=== PATIENT | male | born 1960 | race Two or more races ===

== ENCOUNTER 2020-04-04 12:30 | Inpatient (IN) | payer OTHER ==
[~2020-04-04] VITALS: Ht 152.4 cm; Wt 99.8 kg
[~2020-04-04 12:30] MED LIST: AZITHROMYCIN OP; DAILY VALUE1 EACH; DAILY VALUE1 EACH PO; FOLIC ACID1 MG PO; LEVAQUIN500 MG; LEVAQUIN500 MG PO; PREVACID30 MG; PROTECT PLUS A1 EACH PO; TESSALON PERLE100 M1 PO; TUSSI PRES-B L480 ML PO; TYLENOL325 MG PO
--- NOTE | 2020-04-04 12:47 | NUR ---
PACIENTE ALERTA, SE OBSERVA CON CONFUSION AL HABLAR. EL CUAL REFIERE DIFICULTAD RESPIRATORIA, AL MOMENTO DE REALIZAR NO PRESENTABA, DESEAN AL COLTON SIGNOS VITALES, PACIENTE SATURANDO 90%, NO PRESENTA FIEBRE, PACIENTE REFIERE TENER COVID POSITIVO, SE TRASLADA PACIENTE CON MEDIDAS PROTECTIVAS ADECUADAS AL AREA DE COVID.
--- NOTE | 2020-04-04 13:08 | NUR ---
PACIENTE MASCULINO ALERTA ORIENTADO DEVIDAMENTE IDENTIFICADO. SE RE ORIENTA SOBRE EL TRATAMIENTO ORDENADO POR EL MEDICO EL MISMO REFIERE ENTENDER. BAJO MEDIDAS ASEPTICAS SE CANALIZA, SE ELISA MUESTRAS DE LABORATORIO Y SE ADMINISTRAN MEDICAMENTOS OPHELIA ORDENADOS. SE LE CAROLINE PRIVACIDAD Y SEGURIDAD EN TODO MOMENTO. ORDENEES TOMADAS POR RN: ANUEL Y EJECUTADAS POR RN: Smitha ALFARO.
== END 2020-04-23 22:54 | disposition home or self-care (01) | DRG 177 ==
LOC: ER 12:30 → MEDJ 17:57
PROVIDERS: ADMIT Specialist; ATTEND Specialist
PROC: 8E0ZXY6 Isolation (ICD-10-PCS; principal; 2020-04-04)
PROC: 3E0F7SF Introduction of Other Gas into Respiratory Tract, Via Natural or Artificial Opening (ICD-10-PCS; 2020-04-04)
PROC: 4A033R1 Measurement of Arterial Saturation, Peripheral, Percutaneous Approach (ICD-10-PCS; 2020-04-04)
PROC: 4A12X4Z Monitoring of Cardiac Electrical Activity, External Approach (ICD-10-PCS; 2020-04-04)
PROC: 02HV33Z Insertion of Infusion Device into Superior Vena Cava, Percutaneous Approach (ICD-10-PCS; 2020-04-18)
PROC: BT43ZZZ Ultrasonography of Bilateral Kidneys (ICD-10-PCS; 2020-04-21)
PROC: BW28ZZZ Computerized Tomography (CT Scan) of Head (ICD-10-PCS; 2020-04-22)
DX: U07.1 COVID-19 (principal); J12.89 Other viral pneumonia; D68.8 Other specified coagulation defects; F10.231 Alcohol dependence with withdrawal delirium; N17.8 Other acute kidney failure; B37.49 Other urogenital candidiasis; R09.02 Hypoxemia; F10.20 Alcohol dependence, uncomplicated; K70.9 Alcoholic liver disease, unspecified; E09.9 Drug or chemical induced diabetes mellitus without complications; T38.0X5A Adverse effect of glucocorticoids and synthetic analogues, initial encounter; E87.6 Hypokalemia

== ENCOUNTER 2020-04-24 16:59 | Emergency (ER) | payer OTHER ==
[~2020-04-24] VITALS: Ht 162.6 cm; Wt 90.7 kg
== END 2020-04-25 22:20 | disposition home or self-care (01) ==
LOC: ER 16:59
DX: N30.81 Other cystitis with hematuria (principal); B37.41 Candidal cystitis and urethritis; R33.8 Other retention of urine; R53.81 Other malaise

== ENCOUNTER 2020-08-19 08:00 | Outpatient (CLI) | payer OTHER | END 2020-08-19 08:06 | disposition home or self-care (01) | LOC: LAB 08:00 | PROVIDERS: ATTEND Specialist | DX: U07.1 COVID-19 (principal); E03.8 Other specified hypothyroidism; E78.2 Mixed hyperlipidemia; D51.0 Vitamin B12 deficiency anemia due to intrinsic factor deficiency; J45.998 Other asthma ==

== ENCOUNTER → 2020-11-06 08:04 | Outpatient (CLI) | payer OTHER | END | disposition home or self-care (01) | LOC: LAB 08:04 | PROVIDERS: ATTEND Specialist | DX: E78.2 Mixed hyperlipidemia (principal); N40.1 Benign prostatic hyperplasia with lower urinary tract symptoms; Z12.11 Encounter for screening for malignant neoplasm of colon; E11.65 Type 2 diabetes mellitus with hyperglycemia; D68.8 Other specified coagulation defects; K72.90 Hepatic failure, unspecified without coma; K72.00 Acute and subacute hepatic failure without coma; D64.89 Other specified anemias ==

== ENCOUNTER 2020-11-07 11:13 | Outpatient (CLI) | payer OTHER | END 2020-11-07 11:17 | disposition home or self-care (01) | LOC: LAB 11:13 | PROVIDERS: ATTEND Specialist | DX: D64.89 Other specified anemias (principal); N40.1 Benign prostatic hyperplasia with lower urinary tract symptoms; E11.65 Type 2 diabetes mellitus with hyperglycemia; E11.69 Type 2 diabetes mellitus with other specified complication; D68.8 Other specified coagulation defects; K72.00 Acute and subacute hepatic failure without coma; K72.90 Hepatic failure, unspecified without coma; Z12.11 Encounter for screening for malignant neoplasm of colon; E78.2 Mixed hyperlipidemia ==

== ENCOUNTER → 2021-02-04 08:10 | Outpatient (CLI) | payer OTHER | END | disposition home or self-care (01) | LOC: LAB 08:10 | PROVIDERS: ATTEND Specialist | DX: C22.0 Liver cell carcinoma (principal); K75.81 Nonalcoholic steatohepatitis (NASH) ==

== ENCOUNTER 2021-02-27 08:44 | Outpatient (CLI) | payer OTHER | END 2021-02-27 08:49 | disposition home or self-care (01) | LOC: SONOGRAMA 08:44 | DX: N28.89 Other specified disorders of kidney and ureter (principal); R10.84 Generalized abdominal pain ==

== ENCOUNTER 2021-03-13 08:00 | Outpatient (CLI) | payer OTHER | END 2021-03-13 08:30 | disposition home or self-care (01) | LOC: PPH VACUNA 08:00 | DX: Z23 Encounter for immunization (principal) ==

== ENCOUNTER 2021-04-03 08:20 | Outpatient (CLI) | payer OTHER | END 2021-04-03 09:00 | disposition home or self-care (01) | LOC: PPH VACUNA 08:20 | PROVIDERS: ATTEND Emergency Medicine Pediatric Emergency Medicine | DX: Z23 Encounter for immunization (principal) ==

== ENCOUNTER 2021-06-05 08:16 | Outpatient (CLI) | payer OTHER | END 2021-06-05 08:17 | disposition home or self-care (01) | LOC: LAB 08:16 | PROVIDERS: ATTEND Specialist | DX: D68.8 Other specified coagulation defects (principal); C22.0 Liver cell carcinoma; K75.89 Other specified inflammatory liver diseases; E78.2 Mixed hyperlipidemia; D64.89 Other specified anemias ==

== ENCOUNTER 2021-09-04 08:31 | Outpatient (CLI) | payer OTHER | END 2021-09-04 09:49 | disposition home or self-care (01) | LOC: LAB 08:31 | PROVIDERS: ATTEND Specialist | DX: E03.9 Hypothyroidism, unspecified (principal); E11.21 Type 2 diabetes mellitus with diabetic nephropathy; N39.9 Disorder of urinary system, unspecified; D40.0 Neoplasm of uncertain behavior of prostate; E78.2 Mixed hyperlipidemia; E11.65 Type 2 diabetes mellitus with hyperglycemia; Z12.11 Encounter for screening for malignant neoplasm of colon; D64.9 Anemia, unspecified; J45.998 Other asthma; K75.81 Nonalcoholic steatohepatitis (NASH) ==

== ENCOUNTER 2021-09-04 09:36 | Outpatient (CLI) | payer OTHER | END 2021-09-04 09:42 | disposition home or self-care (01) | LOC: RAD 09:36 | PROVIDERS: ATTEND Specialist | DX: J45.998 Other asthma (principal) ==

== ENCOUNTER → 2021-09-05 08:10 | Outpatient (CLI) | payer OTHER | END | disposition home or self-care (01) | LOC: LAB 08:10 | PROVIDERS: ATTEND Specialist | DX: E03.9 Hypothyroidism, unspecified (principal); E11.21 Type 2 diabetes mellitus with diabetic nephropathy; N39.9 Disorder of urinary system, unspecified; N40.1 Benign prostatic hyperplasia with lower urinary tract symptoms; D40.0 Neoplasm of uncertain behavior of prostate; E78.2 Mixed hyperlipidemia; E11.65 Type 2 diabetes mellitus with hyperglycemia; Z12.11 Encounter for screening for malignant neoplasm of colon; D64.9 Anemia, unspecified; J45.998 Other asthma; K75.81 Nonalcoholic steatohepatitis (NASH) ==

== ENCOUNTER 2021-09-10 08:00 | Outpatient (CLI) | payer OTHER | END 2021-09-10 08:30 | disposition home or self-care (01) | LOC: PPH VACUNA 08:00 | PROVIDERS: ATTEND Emergency Medicine Pediatric Emergency Medicine | DX: Z23 Encounter for immunization (principal) ==

== ENCOUNTER 2021-11-21 07:59 | Outpatient (CLI) | payer OTHER | END 2021-11-21 08:04 | disposition home or self-care (01) | LOC: LAB 07:59 | PROVIDERS: ATTEND Specialist | DX: E78.2 Mixed hyperlipidemia (principal); D64.9 Anemia, unspecified; D68.8 Other specified coagulation defects ==

== ENCOUNTER 2022-02-13 07:16 | Outpatient (CLI) | payer OTHER | END 2022-02-13 07:20 | disposition home or self-care (01) | LOC: LAB 07:16 | PROVIDERS: ATTEND Specialist | DX: N39.9 Disorder of urinary system, unspecified (principal); E11.69 Type 2 diabetes mellitus with other specified complication; E03.8 Other specified hypothyroidism; Z13.220 Encounter for screening for lipoid disorders; D64.89 Other specified anemias; R19.5 Other fecal abnormalities; E11.21 Type 2 diabetes mellitus with diabetic nephropathy; Z12.5 Encounter for screening for malignant neoplasm of prostate ==

== ENCOUNTER 2022-03-02 09:51 | Outpatient (CLI) | payer OTHER | END 2022-03-02 10:01 | disposition home or self-care (01) | LOC: LAB 09:51 | PROVIDERS: ATTEND Specialist | DX: N39.9 Disorder of urinary system, unspecified (principal); E11.69 Type 2 diabetes mellitus with other specified complication; E03.8 Other specified hypothyroidism; D64.89 Other specified anemias; R19.5 Other fecal abnormalities; E11.21 Type 2 diabetes mellitus with diabetic nephropathy; Z13.220 Encounter for screening for lipoid disorders; Z12.5 Encounter for screening for malignant neoplasm of prostate ==

== ENCOUNTER 2022-06-03 07:47 | Outpatient (CLI) | payer OTHER | END 2022-06-03 07:49 | disposition home or self-care (01) | LOC: LAB 07:47 | PROVIDERS: ATTEND Specialist | DX: E11.21 Type 2 diabetes mellitus with diabetic nephropathy (principal); N39.0 Urinary tract infection, site not specified; D64.9 Anemia, unspecified ==

== ENCOUNTER 2022-06-23 11:40 | Outpatient (CLI) | payer OTHER | END 2022-06-23 11:45 | disposition home or self-care (01) | LOC: MAMO-SONO 11:40 | PROVIDERS: ATTEND Specialist | DX: Z12.39 Encounter for other screening for malignant neoplasm of breast (principal); N63.0 Unspecified lump in unspecified breast; N62 Hypertrophy of breast ==

== ENCOUNTER 2022-06-25 09:29 | Outpatient (CLI) | payer OTHER | END 2022-06-25 09:37 | disposition home or self-care (01) | LOC: RAD 09:29 | PROVIDERS: ATTEND Specialist | DX: J45.998 Other asthma (principal) ==

== ENCOUNTER → 2022-08-31 08:32 | Outpatient (CLI) | payer OTHER | END | disposition home or self-care (01) | LOC: LAB 08:32 | PROVIDERS: ATTEND Specialist | DX: E11.69 Type 2 diabetes mellitus with other specified complication (principal); R19.5 Other fecal abnormalities; E11.21 Type 2 diabetes mellitus with diabetic nephropathy; M00.89 Polyarthritis due to other bacteria; N39.8 Other specified disorders of urinary system; E03.8 Other specified hypothyroidism; Z13.220 Encounter for screening for lipoid disorders; D64.89 Other specified anemias; Z12.5 Encounter for screening for malignant neoplasm of prostate ==

== ENCOUNTER → 2022-12-21 | Outpatient (CLI) | payer OTHER | END | disposition home or self-care (01) | LOC: LAB 07:06 | PROVIDERS: ATTEND Specialist | DX: E03.9 Hypothyroidism, unspecified (principal); D64.9 Anemia, unspecified; D68.8 Other specified coagulation defects; K75.81 Nonalcoholic steatohepatitis (NASH) ==

== ENCOUNTER 2023-03-23 07:41 | Outpatient (CLI) | payer OTHER | END 2023-03-23 07:55 | disposition home or self-care (01) | LOC: LAB 07:41 | PROVIDERS: ATTEND Specialist | DX: E03.8 Other specified hypothyroidism (principal); E11.21 Type 2 diabetes mellitus with diabetic nephropathy; Z12.5 Encounter for screening for malignant neoplasm of prostate; E11.69 Type 2 diabetes mellitus with other specified complication; N39.9 Disorder of urinary system, unspecified; R19.5 Other fecal abnormalities; Z13.220 Encounter for screening for lipoid disorders; D64.89 Other specified anemias ==

== ENCOUNTER 2023-07-05 07:48 | Outpatient (CLI) | payer OTHER ==
[2023-07-05 09:19] LABS: HEMATOCRIT 39.4 % (39.0-48.0); HEMOGLOBIN 13.4 g/dL (13-16.00); MEAN CELL VOLUME 91.5 fL (80.0-100.00); MEAN CORPUSCULAR HEMOGLOBIN 31.1 pg (27.00-32.0); MEAN CORPUSCULAR HGB CONC 33.9 g/dl (32.0-36.0); PLATELET COUNT 174 K/uL (150-450)
[2023-07-05 09:36] LABS: URINE APPEARANCE Clear; URINE BILIRRUBIN Negative (NEGATIVE); URINE BLOOD Negative; URINE COLOR Yellow; URINE GLUCOSE Negative (NEGATIVE); URINE LEUKOCYTE Negative; URINE NITRATE Negative; URINE PROTEIN Negative (NEGATIVE); URINE UROBILINOGEN 0.2 E.U./dl
[2023-07-05 09:41] LABS: URINE EPITHELIAL CELLS 3.5 uL (0.0-38.8)
[2023-07-05 09:52] LABS: URINE BACTERIA 3.7 uL (0.0-1933); URINE WBC 1.2 uL (0.0-23.2)
[2023-07-05 09:54] LABS: ALBUMIN 3.1 gm/dL (3.4-5.0); BILIRUBIN TOTAL 0.6 mg/dL (0.3-1.2); CALCIUM 8.1 mg/dL (8.5-10.1); CREATININE SERUM 0.5 mg/dL (0.70-1.30); FREE TRIODOTIRONINE 2.87 pg/ml (2.18-3.98); GFR 166.88; GLOBULINA 3.9 G/DL (2.4-3.5); POTASSIUM 3.58 mEq/L (3.5-5.1); T4 FREE 1.18 NG/ML (0.76-1.46); TSH 1.26 uIU/mL (0.358-3.74)
== END 2023-07-05 23:00 | disposition home or self-care (01) ==
LOC: LAB 07:48
PROVIDERS: ATTEND Specialist
DX: E11.69 Type 2 diabetes mellitus with other specified complication (principal); D64.89 Other specified anemias; E11.21 Type 2 diabetes mellitus with diabetic nephropathy; N39.9 Disorder of urinary system, unspecified; E03.8 Other specified hypothyroidism

== ENCOUNTER 2024-03-30 07:19 | Outpatient (CLI) | payer OTHER ==
[2024-03-30 08:26] LABS: HEMATOCRIT 37.1 % (39.0-48.0); HEMOGLOBIN 12.6 g/dL (13-16.00); MEAN CELL VOLUME 92.5 fL (80.0-100.00); MEAN CORPUSCULAR HEMOGLOBIN 31.4 pg (27.00-32.0); PLATELET COUNT 156 K/uL (150-450); RED BLOOD COUNT 4.01 M/uL (4.00-6.00); RED CELL DISTRIBUTION WIDTH 12.7 % (11.5-14.5)
[2024-03-30 08:40] LABS: URINE EPITHELIAL CELLS 2.4 uL (0.0-38.8); URINE RBC 7.1 uL (0.0-20.8); URINE WBC 1.8 uL (0.0-23.2)
[2024-03-30 08:51] LABS: PH,URINE 7.5; URINE BILIRRUBIN NEGATIVE (NEGATIVE); URINE BLOOD NEGATIVE; URINE GLUCOSE NEGATIVE (NEGATIVE); URINE KETONE NEGATIVE (NEGATIVE); URINE LEUKOCYTE NEGATIVE; URINE NITRATE NEGATIVE; URINE PROTEIN NEGATIVE (NEGATIVE); URINE UROBILINOGEN 0.2 E.U./dl
[2024-03-30 08:53] LABS: URINE APPEARANCE CLEAR; URINE COLOR YELLOW
[2024-03-30 09:04] LABS: URINE CAST 0.15 uL (0.0-1.40)
[2024-03-30 09:22] LABS: ALBUMIN 3.1 gm/dL (3.4-5.0); BILIRUBIN TOTAL 0.76 mg/dL (0.3-1.2); CALCIUM 8.8 mg/dL (8.5-10.1); CREATININE SERUM 0.72 mg/dL (0.70-1.30); GFR 109.56; GLOBULINA 3.9 G/DL (2.4-3.5); PROSTATIC SPECIFIC ANTIGEN 0.482 NG/ML (0.010-4.00)
== END 2024-03-30 07:26 | disposition home or self-care (01) ==
LOC: LAB 07:19
PROVIDERS: ATTEND Specialist
DX: N40.1 Benign prostatic hyperplasia with lower urinary tract symptoms (principal); E11.21 Type 2 diabetes mellitus with diabetic nephropathy; E11.69 Type 2 diabetes mellitus with other specified complication; N39.9 Disorder of urinary system, unspecified; D64.89 Other specified anemias

== ENCOUNTER → 2024-07-04 08:03 | Outpatient (CLI) | payer OTHER ==
[2024-07-04 09:08] LABS: INR 1.2; PARTIAL THROMBOPLASTIN TIME 27.7 SECONDS (22.0-34.0); PROTHROMBIN TIME 12.9 SECONDS (9.0-11.5)
[2024-07-04 09:52] LABS: ALBUMIN 3.4 gm/dL (3.4-5.0); BILIRUBIN TOTAL 0.88 mg/dL (0.3-1.2); BILIRUBIN,CONJUGATED 0.43 mg/dL (0.0-0.2); BILIRUBIN,UNCONJUGATED 0.45 mg/dL (0.0-0.6); CHOL HDL RATIO 1.7 (0-5.0); PROSTATIC SPECIFIC ANTIGEN 0.698 NG/ML (0.010-4.00); TOTAL PROTEIN 7.5 gm/dL (6.4-8.2); TSH 1.64 uIU/mL (0.358-3.74)
== END | disposition home or self-care (01) ==
LOC: LAB 08:03
PROVIDERS: ATTEND Specialist
DX: K76.1 Chronic passive congestion of liver (principal); E03.9 Hypothyroidism, unspecified; D40.0 Neoplasm of uncertain behavior of prostate; E78.2 Mixed hyperlipidemia; D68.8 Other specified coagulation defects; K75.81 Nonalcoholic steatohepatitis (NASH)

== ENCOUNTER 2024-10-03 07:23 | Outpatient (CLI) | payer OTHER ==
[2024-10-03 08:14] LABS: HEMATOCRIT 36.3 % (39.0-48.0); HEMOGLOBIN 12.2 g/dL (13-16.00); MEAN CELL VOLUME 91.8 fL (80.0-100.00); MEAN CORPUSCULAR HEMOGLOBIN 30.8 pg (27.00-32.0); MEAN CORPUSCULAR HGB CONC 33.6 g/dl (32.0-36.0); RED BLOOD COUNT 3.95 M/uL (4.00-6.00); RED CELL DISTRIBUTION WIDTH 14.4 % (11.5-14.5)
[2024-10-03 08:24] LABS: PLATELET COUNT 89 K/uL (150-450)
[2024-10-03 08:37] LABS: INR 1.15; PARTIAL THROMBOPLASTIN TIME 29.4 SECONDS (22.0-34.0); PROTHROMBIN TIME 12.4 SECONDS (9.0-11.5)
[2024-10-03 08:39] LABS: URINE APPEARANCE Clear; URINE BILIRRUBIN Negative (NEGATIVE); URINE BLOOD Negative; URINE COLOR Yellow; URINE GLUCOSE Negative (NEGATIVE); URINE KETONE Negative (NEGATIVE); URINE LEUKOCYTE Negative; URINE NITRATE Negative; URINE PROTEIN Negative (NEGATIVE); URINE UROBILINOGEN 0.2 E.U./dl
[2024-10-03 08:44] LABS: URINE BACTERIA 20.7 uL (0.0-1933); URINE EPITHELIAL CELLS 2.3 uL (0.0-38.8)
[2024-10-03 08:49] LABS: CREATININE URINE RANDOM 30.9 MG/DL (30-125)
[2024-10-03 09:00] LABS: URINE CAST 0.14 uL (0.0-1.40); URINE WBC 0.7 uL (0.0-23.2)
[2024-10-03 09:27] LABS: ALBUMIN 3.3 gm/dL (3.4-5.0); BILIRUBIN TOTAL 1.23 mg/dL (0.3-1.2); BILIRUBIN,CONJUGATED 0.5 mg/dL (0.0-0.2); BILIRUBIN,UNCONJUGATED 0.73 mg/dL (0.0-0.6); CALCIUM 8.1 mg/dL (8.5-10.1); CHOL HDL RATIO 1.8 (0-5.0); CREATININE SERUM 0.46 mg/dL (0.70-1.30); FREE TRIODOTIRONINE 2.77 pg/ml (2.18-3.98); GFR 183.17; GLOBULINA 3.8 G/DL (2.4-3.5); POTASSIUM 3.58 mEq/L (3.5-5.1); T4 FREE 1.06 NG/ML (0.76-1.46); TOTAL PROTEIN 7.1 gm/dL (6.4-8.2); TSH 1.32 uIU/mL (0.358-3.74)
[2024-10-03 09:54] LABS: PLATELET ESTIMATE DECREASED (NORMAL)
== END 2024-10-03 07:30 | disposition home or self-care (01) ==
LOC: RAD 07:23 → LAB 07:23 → RAD 07:30
PROVIDERS: ATTEND Specialist
DX: E03.9 Hypothyroidism, unspecified (principal); E11.21 Type 2 diabetes mellitus with diabetic nephropathy; N39.0 Urinary tract infection, site not specified; E78.2 Mixed hyperlipidemia; E11.65 Type 2 diabetes mellitus with hyperglycemia; Z12.11 Encounter for screening for malignant neoplasm of colon; D64.9 Anemia, unspecified; D68.8 Other specified coagulation defects; K75.81 Nonalcoholic steatohepatitis (NASH); E55.9 Vitamin D deficiency, unspecified; J45.998 Other asthma

== ENCOUNTER 2024-12-18 07:57 | Outpatient (CLI) | payer OTHER | END 2024-12-18 07:59 | disposition home or self-care (01) | LOC: RAD 07:57 | PROVIDERS: ATTEND Internal Medicine Pulmonary Disease | DX: J45.20 Mild intermittent asthma, uncomplicated (principal) ==

== ENCOUNTER 2025-01-05 07:20 | Outpatient (CLI) | payer OTHER ==
[2025-01-05 08:23] LABS: PH,URINE 7.5 (5.0-8.0); URINE APPEARANCE Clear; URINE BILIRRUBIN Negative (NEGATIVE); URINE BLOOD Negative; URINE COLOR Yellow; URINE GLUCOSE Negative (NEGATIVE); URINE KETONE Negative (NEGATIVE); URINE LEUKOCYTE Negative; URINE NITRATE Negative; URINE PROTEIN Negative (NEGATIVE)
[2025-01-05 08:24] LABS: EOS # 0.14 (0.04-0.54); EOS % 4.3 % (0.7-7.0); HEMATOCRIT 31.9 % (40.1-51.0); HEMOGLOBIN 10.8 g/dL (13.7-17.5); LYMPH # 1.39 (1.18-3.74); MEAN CORPUSCULAR HEMOGLOBIN 28.8 pg (25.6-32.2); NEUT # 1.02 (1.56-6.13); NEUT % 31.6 % (34.0-71.1); RED BLOOD COUNT 3.75 M/uL (4.63-6.08); RED CELL DISTRIBUTION WIDTH 14.3 % (11.6-14.4)
[2025-01-05 08:27] LABS: URINE BACTERIA 17.1 uL (0.0-1933); URINE EPITHELIAL CELLS 6.6 uL (0.0-38.8); URINE RBC 3.5 uL (0.0-20.8); URINE WBC 4.4 uL (0.0-23.2)
[2025-01-05 08:38] LABS: BASO % 2.2 % (0.1-1.2); MONO % 18.6 % (4.7-12.5); PLATELET COUNT 114 K/uL (163-369)
[2025-01-05 08:42] LABS: URINE CAST 0.29 uL (0.0-1.40)
[2025-01-05 08:55] LABS: INR 1.21; PARTIAL THROMBOPLASTIN TIME 27.5 SECONDS (22.0-34.0)
[2025-01-05 09:39] LABS: ALBUMIN 3.2 gm/dL (3.4-5.0); BILIRUBIN TOTAL 0.95 mg/dL (0.3-1.2); BILIRUBIN,CONJUGATED 0.51 mg/dL (0.0-0.2); BILIRUBIN,UNCONJUGATED 0.44 mg/dL (0.0-0.6); CALCIUM 8.7 mg/dL (8.5-10.1); CREATININE SERUM 0.61 mg/dL (0.70-1.30); FREE TRIODOTIRONINE 2.59 pg/ml (2.18-3.98); GFR 132.25; GLOBULINA 4.1 G/DL (2.4-3.5); POTASSIUM 3.36 mEq/L (3.5-5.1); T4 FREE 1.23 NG/ML (0.76-1.46); TOTAL PROTEIN 7.3 gm/dL (6.4-8.2); TSH 1.54 uIU/mL (0.358-3.74)
== END 2025-01-05 07:28 | disposition home or self-care (01) ==
LOC: LAB 07:20
PROVIDERS: ATTEND Specialist
DX: E03.9 Hypothyroidism, unspecified (principal); N39.9 Disorder of urinary system, unspecified; E78.2 Mixed hyperlipidemia; E11.65 Type 2 diabetes mellitus with hyperglycemia; D64.9 Anemia, unspecified; D68.8 Other specified coagulation defects; K75.81 Nonalcoholic steatohepatitis (NASH); E55.9 Vitamin D deficiency, unspecified

== ENCOUNTER 2025-01-16 07:40 | Outpatient (CLI) | payer OTHER | END 2025-01-16 07:43 | disposition home or self-care (01) | LOC: SONOGRAMA 07:40 | PROVIDERS: ATTEND Internal Medicine Gastroenterology | DX: R10.9 Unspecified abdominal pain (principal) ==

== ENCOUNTER 2025-01-18 07:24 | Outpatient (CLI) | payer OTHER | END 2025-01-18 07:29 | disposition home or self-care (01) | LOC: SONOGRAMA 07:24 | PROVIDERS: ATTEND Internal Medicine Gastroenterology | DX: R16.0 Hepatomegaly, not elsewhere classified (principal); K76.9 Liver disease, unspecified ==

== ENCOUNTER 2025-04-06 06:59 | Outpatient (CLI) | payer OTHER ==
[2025-04-06 07:40] LABS: BASO % 0.9 % (0.1-1.2); EOS # 0.23 (0.04-0.54); EOS % 7.0 % (0.7-7.0); LYMPH # 0.89 (1.18-3.74); LYMPH % 27.2 % (19.3-53.1); MEAN PLATELET VOLUME 11.60 fl (9.4-12.4); MONO # 0.43 (0.24-0.82); NEUT # 1.68 (1.56-6.13); NEUT % 51.5 % (34.0-71.1); RED CELL DISTRIBUTION WIDTH 14.0 % (11.6-14.4)
[2025-04-06 07:41] LABS: MONO % 13.1 % (4.7-12.5)
[2025-04-06 07:59] LABS: INR 1.19
[2025-04-06 08:46] LABS: ALT/SGPT 26.0 U/L (12-78); AST/SGOT 53.0 U/L (15-37); BILIRUBIN TOTAL 1.29 mg/dL (0.3-1.2); BILIRUBIN,CONJUGATED 0.54 mg/dL (0.0-0.2); BUN CREA RATIO 7.0 (7.0-25.0); CREATININE SERUM 0.56 mg/dL (0.70-1.30); GFR 145.97; GLOBULINA 3.9 G/DL (2.4-3.5); GLUCOSE FASTING 117.0 mg/dL (65-100); OSMOLALITY SERUM 285.0 MOSM/KG (275-295)
== END 2025-04-06 07:00 | disposition home or self-care (01) ==
LOC: LAB 06:59
PROVIDERS: ATTEND Specialist
DX: D64.9 Anemia, unspecified (principal); E11.65 Type 2 diabetes mellitus with hyperglycemia; D68.8 Other specified coagulation defects; K75.81 Nonalcoholic steatohepatitis (NASH); K74.69 Other cirrhosis of liver; K70.9 Alcoholic liver disease, unspecified; K76.82 Hepatic encephalopathy

== ENCOUNTER 2025-06-04 09:08 | Emergency (ER) | payer OTHER ==
[~2025-06-04] VITALS: Ht 157.5 cm; Wt 93.0 kg
[2025-06-04 11:57] LABS: BASO % 1.1 % (0.1-1.2); EOS # 0.24 (0.04-0.54); EOS % 3.0 % (0.7-7.0); LYMPH # 1.65 (1.18-3.74); LYMPH % 20.9 % (19.3-53.1); MEAN PLATELET VOLUME 12.50 fl (9.4-12.4); MONO # 1.39 (0.24-0.82); NEUT # 4.49 (1.56-6.13); NEUT % 56.9 % (34.0-71.1); RED CELL DISTRIBUTION WIDTH 14.8 % (11.6-14.4)
[2025-06-04 12:00] LABS: MONO % 17.6 % (4.7-12.5)
[2025-06-04 12:19] LABS: ALT/SGPT 39.0 U/L (12-78); AST/SGOT 63.0 U/L (15-37); BILIRUBIN TOTAL 1.35 mg/dL (0.3-1.2); BUN CREA RATIO 15.0 (7.0-25.0); CREATININE SERUM 1.03 mg/dL (0.70-1.30); GFR 72.03; GLOBULINA 4.6 G/DL (2.4-3.5); GLUCOSE FASTING 123.0 mg/dL (65-100); OSMOLALITY SERUM 278.0 MOSM/KG (275-295)
[2025-06-04 12:45] LABS: COVID-19 AG NEGATIVE (NEGATIVE)
== END 2025-06-04 17:08 | disposition home or self-care (01) ==
LOC: ER 09:09
PROVIDERS: General Practice
DX: I48.91 Unspecified atrial fibrillation (principal); J06.9 Acute upper respiratory infection, unspecified; R42 Dizziness and giddiness; R05.8 Other specified cough; Z20.822 Contact with and (suspected) exposure to COVID-19; Z88.0 Allergy status to penicillin; Z88.6 Allergy status to analgesic agent

== ENCOUNTER → 2025-06-21 07:26 | Outpatient (CLI) | payer OTHER | END | disposition home or self-care (01) | LOC: LAB 07:26 | PROVIDERS: ATTEND Specialist | DX: I50.9 Heart failure, unspecified (principal); I11.0 Hypertensive heart disease with heart failure ==